=== PATIENT | male | born 2000 | race Caucasian/White ===

== ENCOUNTER 2025-10-05 12:00 | Day surgery (SDC) | payer OTHER ==
[2025-09-30 12:16] LABS: BASO % 0.2 % (0.1-1.2); EOS # 0.05 (0.04-0.54); EOS % 1.0 % (0.7-7.0); LYMPH # 1.63 (1.18-3.74); LYMPH % 33.4 % (19.3-53.1); MEAN PLATELET VOLUME 10.30 fl (9.4-12.4); MONO # 0.54 (0.24-0.82); MONO % 11.1 % (4.7-12.5); NEUT # 2.61 (1.56-6.13); NEUT % 53.5 % (34.0-71.1); RED CELL DISTRIBUTION WIDTH 14.0 % (11.6-14.4)
[2025-09-30 12:30] LABS: URINE APPEARANCE Clear; URINE BILIRRUBIN Negative (NEGATIVE); URINE BLOOD Negative; URINE COLOR Yellow; URINE GLUCOSE Negative (NEGATIVE); URINE KETONE Trace (NEGATIVE); URINE LEUKOCYTE Negative; URINE NITRATE Negative; URINE PROTEIN Negative (NEGATIVE); URINE UROBILINOGEN 0.2 E.U./dl
[2025-09-30 12:35] LABS: URINE BACTERIA 13.1 uL (0.0-1933); URINE EPITHELIAL CELLS 2.1 uL (0.0-38.8)
[2025-09-30 12:38] LABS: URINE CAST 0.00 uL (0.0-1.40); URINE RBC 1.3 uL (0.0-20.8); URINE WBC 1.5 uL (0.0-23.2)
[2025-09-30 12:42] LABS: INR 1.06
[2025-09-30 13:01] VITALS: BP 100/68
[2025-09-30 13:04] LABS: ALT/SGPT 56.0 U/L (12-78); AST/SGOT 27.0 U/L (15-37); BILIRUBIN TOTAL 2.27 mg/dL (0.3-1.2); BUN CREA RATIO 20.0 (7.0-25.0); CREATININE SERUM 0.83 mg/dL (0.70-1.30); GFR 115.85; GLOBULINA 3.3 G/DL (2.4-3.5); GLUCOSE FASTING 94.0 mg/dL (65-100); OSMOLALITY SERUM 290.0 MOSM/KG (275-295)
[~2025-10-05] VITALS: Ht 154.9 cm; Wt 59.0 kg
[~2025-10-05 12:00] MED LIST: LIPITOR20 MG PO
[2025-10-05] MEDS ORDERED: CEFAZOLIN SODIUM 1,000 MG VIAL ONE (15:03)
[2025-10-05] MEDS ORDERED: DEXAMETHASONE SODIUM PHOSPHATE 4 MG/ML VIAL ONE (15:03)
[2025-10-05] MEDS ORDERED: LIDOCAINE HCL 1%/EPINEPHRINE 20ML VIAL IJ ONE (17:30)
== END 2025-10-05 19:35 | disposition home or self-care (01) ==
LOC: CIR.AMB 12:00
PROVIDERS: ATTEND Otolaryngology
DX: D49.89 Neoplasm of unspecified behavior of other specified sites (principal); C18.9 Malignant neoplasm of colon, unspecified; R59.0 Localized enlarged lymph nodes